=== PATIENT | female | born 1960 | race Caucasian/White ===

== ENCOUNTER 2017-01-01 18:04 | Emergency (ER) | payer OTHER ==
[~2017-01-01 18:04] MED LIST: CYMBALTA60 MG; DEPO-PROVER150 MG/ML; LORTAB 5/500 TA1 TAB; LYRICA100 MG/CAP PO
[2017-01-01] MEDS ORDERED: HYDROCODON-ACE1 EA16 PO (19:54)
[2017-01-01 20:33] LABS: HCT-HEMATOCRIT 41.4 % (34.0-49.0); HGB-HEMOGLOBIN 13.6 gm/dl (12.0-15.5); MCHC MEAN CORPUSCULAR HGB CONC 32.9 % (32.0-36.0); MCV (MEAN CELL VOLUME) 85.4 fl (82.0-96.0); NEUTROPHIL-AUTOMATED 1.8 tho/cmm (1.6-8.0); PLATELET COUNT 238 tho/cmm (150-450); RED BLOOD COUNT 4.85 mil/cmm (4.00-5.20); RED CELL DISTRIBUTION WIDTH 14.6 % (12.4-16.4); WHITE BLOOD COUNT 10.3 tho/cmm (4.0-10.0)
[2017-01-01 20:39] LABS: PROTHROMBIN TIME 11.2 SECONDS (9.0-13.6)
[2017-01-01 20:46] LABS: ANION GAP 11 mmol/L (0-20); BLOOD UREA NITROGEN 27 mg/dl (6-24); CALCIUM 8.5 mg/dl (8.5-10.5); CARBON DIOXIDE-VENOUS 30 mmol/L (22-32); CHLORIDE 104 mmol/l (96-110); CREATININE 0.63 mg/dl (0.50-1.10); GLUCOSE 94 mg/dL (70-110); POTASSIUM 3.6 mmol/L (3.7-5.1); SODIUM 141 mmol/L (135-145); eGFR VALUE FOR BLACK >90 mL/Min
[2017-01-01 21:14] LABS: BAND % 5 % (0-20); BAND ABSOLUTE COUNT 0.5 tho/cmm (0-2.0)
[2017-01-01 21:15] LABS: WBC MORPHOLOGY VARIANT LYMPHS
== END 2017-01-01 21:21 ==
LOC: EDMED 18:04
PROVIDERS: Physician Assistant
DX: I80.02 Phlebitis and thrombophlebitis of superficial vessels of left lower extremity (principal); Z98.890 Other specified postprocedural states